=== PATIENT | female | born 1970 | race African-American/Black ===

== ENCOUNTER 2019-01-08 03:54 | Emergency (ER) | payer SELFPAY ==
[2019-01-08] MEDS ORDERED: traMADol HCl 50 MG TAB ONE (05:05)
[2019-01-08] MEDS ORDERED: Methocarbamol 500 MG TAB PO SCH (05:30)
--- NOTE | 2019-01-08 08:17 | CT ---
CT CHEST NONCONTRAST CT THORACIC SPINE WITH 3D VOLUME RENDERING: CLINICAL HISTORY: Posttraumatic chest and back pain, difficulty breathing. FINDINGS: Multifocal lucencies of the pulmonary parenchyma are present compatible with scattered emphysema. Th ere is dependent patchy opacification of each lung, greater on the right. Biapical blebs are present . There is no pneumothorax. No evidence of pleural fluid. The regional vasculature, soft tissues, and mediastinal contents are limited in assessment by noncontrast imaging. Imaging of the thoracic s pine reveals no evidence of compression fracture or subluxation. There is multilevel degenerative ch artemio. No displaced fracture of the sternum is seen. IMPRESSION: 1. No evidence of significant, acute posttraumatic sequelae. 2. Pulmonary emphysema. POS: [facility]
--- NOTE | 2019-01-08 08:23 | RAD ---
TWO VIEW CHEST: HISTORY: Chest pain. FINDINGS: Lung conn are clear. Heart and mediastinum unremarkable. Vasculature normal. Osseous structures unremarkable. IMPRESSION: No acute finding. POS: [facility]
--- NOTE | 2019-01-10 12:17 | EKG ---
Test Reason : Blood Pressure : / mmHG Vent. Rate : 087 BPM Atrial Rate : 087 BPM P-R Int : 148 ms QRS Dur : 076 ms QT Int : 398 ms P-R-T Axes : 060 005 043 degrees QTc Int : 478 ms Normal sinus rhythm Possible Left atrial enlargement Confirmed by RENATE ANTUNEZ ([id number]), city editor KARLA PAGE ([id number] on 01/10/2019 12:16:50 PM Referred By: Confirmed By:RENATE ANTUNEZ
== END 2019-01-08 06:15 | disposition home or self-care (01) ==
LOC: ERS 03:54
DX: S20.211A Contusion of right front wall of thorax, initial encounter (principal); I10 Essential (primary) hypertension; F17.210 Nicotine dependence, cigarettes, uncomplicated; F31.9 Bipolar disorder, unspecified; W11.XXXA Fall on and from ladder, initial encounter
CPT/HCPCS: 71046; 71250; 93005